=== PATIENT | female | born 1955 | race Caucasian/White ===

== ENCOUNTER 2017-07-01 14:43 | Inpatient (IN) | payer BC ==
[~2017-07-01] VITALS: Ht 160 cm; Wt 86.9 kg
[2017-07-01 14:45] VITALS: BP 139/89; PULSE 99; RESP 16; TEMP 98.2; O2SAT 96
[2017-07-01] MEDS ORDERED: SODIUM CHLOR 0.9% 1000 ML INJ 1,000 ML IV ONE ×3 (15:15→16:30)
[2017-07-01 15:18] VITALS: RESP 18; O2SAT 95
[2017-07-01 15:48] LABS: AUTOMATED NEUTROPHIL # 4.8 TH/MM3 (1.8-7.7); BASOPHIL % 0.6 % (0.0-2.0); EOSINOPHIL # 0.2 TH/MM3 (0-0.4); EOSINOPHIL % 2.4 % (0.0-4.0); HEMATOCRIT 48.6 % (35.0-46.0); HEMOGLOBIN 16.3 GM/DL (11.6-15.3); LYMPH % 24.7 % (9.0-44.0); LYMPHOCYTE # 1.8 TH/MM3 (1.0-4.8); MEAN CELL VOLUME 92.1 FL (80.0-100.0); MEAN CORPUSCULAR HGB CONC 33.6 % (32.0-36.0); MEAN PLATELET VOLUME 11.5 FL (7.0-11.0); MONO % 7.7 % (0.0-8.0); MONOCYTE # 0.6 TH/MM3 (0-0.9); NEUT % 64.6 % (16.0-70.0); PLATELET COUNT 208 TH/MM3 (150-450); RED BLOOD COUNT 5.27 MIL/MM3 (4.00-5.30); RED CELL DISTRIBUTION WIDTH 12.7 % (11.6-17.2); WHITE BLOOD COUNT 7.4 TH/MM3 (4.0-11.0)
[2017-07-01] MEDS ORDERED: HYDR12.56 PO (15:48)
[2017-07-01] MEDS ORDERED: PRAV40TA2 PO (15:48)
[2017-07-01 15:50] VITALS: BP 141/74; PULSE 75; RESP 18; O2SAT 96
--- NOTE | 2017-07-01 15:55 | PD ---
HPI Chief Complaint: Diabetic Time Seen by Provider: 14:57 Travel History International Travel<30 days: No Contact w/Intl Traveler<30days: No Traveled to known affect area: No History of Present Illness HPI 61-year-old female that presents to the ED for evaluation of dizziness, polyuria and polydipsia as well as elevated blood sugar. Per patient she's had this for about a week now. Per patient is Presently getting worse. looked up the symptoms she was having ongoing and that they could be diabetes of he personally told a blood sugar monitor for her and check her sugar multiple times and it read "high". She states that she has no history of diabetes was assessed history of high cholesterol and hypertension. Denies any chest pain or shortness of breath. Per patient she feels like she is dizzy and weak. She feels very thirsty. She has no pain. No numbness or tingling. Denies any trauma or head injury. Has a family history of diabetes in the family. She has an allergy to codeine and morphine. She has not taken anything for this. She's also been feeling nauseous but not throwing up. No diarrhea. PFSH Past Medical History Hypertension: Yes Triglycerides - High: Yes Past Surgical History Genitourinary Surgery: Yes (Rt kidney donated in 1996) Social History Alcohol Use: Yes (on occasion) Tobacco Use: No Substance Use: No Allergies-Medications (Allergen,Severity, Reaction): Coded Allergies: codeine (Verified Allergy, Severe, 07/01/17) morphine (Verified Allergy, Severe, 07/01/17) Reported Meds & Prescriptions Reported Meds & Active Scripts Active Reported Pravastatin 40 Mg Tab 40 Mg PO DAILY Hydrochlorothiazide 12.5 Mg Tab 12.5 Mg PO DAILY Review of Systems Except as stated in HPI: all other systems reviewed are Neg Physical Exam Narrative GENERAL: SKIN: Warm and dry. HEAD: Atraumatic. Normocephalic. EYES: Pupils equal and round. No scleral icterus. No injection or drainage. ENT: No nasal bleeding or discharge. Mucous membranes pink and moist. Tongue is midline. No uvula deviation. NECK: Trachea midline. No JVD. CARDIOVASCULAR: Regular rate and rhythm. No murmurs, S3, S4. RESPIRATORY: No accessory muscle use. Clear to auscultation. Breath sounds equal bilaterally. GASTROINTESTINAL: Abdomen soft, non-tender, nondistended. Hepatic and splenic margins not palpable. MUSCULOSKELETAL: Extremities without clubbing, cyanosis, or edema. No obvious deformities. Full range of motion of the upper and lower extremities bilaterally. 2+ pulses bilaterally. NEUROLOGICAL: Awake and alert. No obvious cranial nerve deficits. Motor grossly within normal limits. Five out of 5 muscle strength in the arms and legs. Normal speech. PSYCHIATRIC: Appropriate mood and affect; insight and judgment normal. Data Data Last Documented VS Vital Signs Date Time Temp Pulse Resp B/P (MAP) Pulse Ox O2 Delivery O2 Flow Rate FiO2 07/01/17 15:20 18 96 Room Air 07/01/17 15:18 07/01/17 14:45 98.2 99 Orders Orders Electrocardiogram (07/01/17 15:13) Complete Blood Count With Diff (07/01/17 15:13) Comprehensive Metabolic Panel (07/01/17 15:13) Ckmb (Isoenzyme) Profile (07/01/17 15:13) Troponin I (07/01/17 15:13) Urinalysis - C+S If Indicated (07/01/17 15:13) Magnesium (Mg) (07/01/17 15:13) Thyroid Stimulating Hormone (07/01/17 15:13) Ct Brain W/O Iv Contrast(Rout) (07/01/17 15:13) Iv Access Insert/Monitor (07/01/17 15:13) Ecg Monitoring (07/01/17 15:13) Oximetry (07/01/17 15:13) Sodium Chlor 0.9% 1000 Ml Inj (Ns 1000 M (07/01/17 15:15) Sodium Chlor 0.9% 1000 Ml Inj (Ns 1000 M (07/01/17 15:15) Beta Hydroxybutyrate (Acetone) (07/01/17 15:13) CKMB (07/01/17 15:26) CKMB% (07/01/17 15:26) Sodium Chlor 0.9% 1000 Ml Inj (Ns 1000 M (07/01/17 16:30) Admit To Inpatient (07/01/17 ) Vital Signs (Adult) Q4H (07/01/17 16:29) Activity Oob With Assistance (07/01/17 16:29) Electrical Equipment Technician / Telemetry .CONTINUOUS (07/01/17 16:29) Intake + Output KATHRIN.QSHIFT (07/01/17 16:29) Diet 1800 Ada Cons Carb (07/01/17 Dinner) Sodium Chlor 0.9% 1000 Ml Inj (Ns 1000 M (07/01/17 16:29) Sodium Chloride 0.9% Flush (Ns Flush) (07/01/17 16:30) Sodium Chloride 0.9% Flush (Ns Flush) (07/01/17 21:00) Basic Metabolic Panel (Bmp) (07/02/17 06:00) Complete Blood Count With Diff (07/02/17 06:00) Case Management Consult (07/01/17 16:29) Naloxone Inj (Narcan Inj) (07/01/17 16:30) Inpatient Certification (07/01/17 ) Bedside Glucose Q4H (07/01/17 16:29) Blood Glucose Goal (Criteria) (07/01/17 16:29) Hypoglycemia 70 Mg/Dl Or < (07/01/17 16:29) Notify Dr: Other (07/01/17 16:29) Dextrose 50% In Dari (Vial) Inj (D50w (Vi (07/01/17 16:30) Glucagon Inj (Glucagon Inj) (07/01/17 16:30) Insulin Aspart Supplemtl Scale (Novolog (07/01/17 16:30) Admit Order (Ed Use Only) (07/01/17 16:31) Labs Laboratory Tests Test 07/01/17 15:26 07/01/17 15:50 White Blood Count 7.4 TH/MM3 Red Blood Count 5.27 MIL/MM3 Hemoglobin 16.3 GM/DL Hematocrit 48.6 % Mean Corpuscular Volume 92.1 FL Mean Corpuscular Hemoglobin 31.0 PG Mean Corpuscular Hemoglobin Concent 33.6 % Red Cell Distribution Width 12.7 % Platelet Count 208 TH/MM3 Mean Platelet Volume 11.5 FL Neutrophils (%) (Auto) 64.6 % Lymphocytes (%) (Auto) 24.7 % Monocytes (%) (Auto) 7.7 % Eosinophils (%) (Auto) 2.4 % Basophils (%) (Auto) 0.6 % Neutrophils # (Auto) 4.8 TH/MM3 Lymphocytes # (Auto) 1.8 TH/MM3 Monocytes # (Auto) 0.6 TH/MM3 Eosinophils # (Auto) 0.2 TH/MM3 Basophils # (Auto) 0.0 TH/MM3 CBC Comment DIFF FINAL Differential Comment Blood Urea Nitrogen 38 MG/DL Creatinine 1.52 MG/DL Random Glucose 806 MG/DL Total Protein 8.3 GM/DL Albumin 4.0 GM/DL Calcium Level 9.6 MG/DL Magnesium Level 2.3 MG/DL Alkaline Phosphatase 131 U/L Aspartate Amino Transf (AST/SGOT) 50 U/L Alanine Aminotransferase (ALT/SGPT) 79 U/L Total Bilirubin 0.5 MG/DL Sodium Level 122 MEQ/L Potassium Level 5.1 MEQ/L Chloride Level 85 MEQ/L Carbon Dioxide Level 26.6 MEQ/L Anion Gap 10 MEQ/L Estimat Glomerular Filtration Rate 35 ML/MIN Total Creatine Kinase 134 U/L Creatine Kinase MB 0.5 NG/ML Troponin I LESS THAN 0.02 NG/ML Thyroid Stimulating Hormone 3rd Gen 0.863 uIU/ML B-Hydroxybutyrate 1.58 MMOL/L Urine Color LIGHT-YELLOW Urine Turbidity CLEAR Urine pH 5.0 Urine Specific [place] 1.026 Urine Protein NEG mg/dL Urine Glucose (UA) 1000 mg/dL Urine Ketones 10 mg/dL Urine Occult Blood NEG Urine Nitrite NEG Urine Bilirubin NEG Urine Urobilinogen LESS THAN 2.0 MG/DL Urine Leukocyte Esterase NEG Urine RBC LESS THAN 1 /hpf Urine WBC LESS THAN 1 /hpf Urine Mucus FEW /lpf Microscopic Urinalysis Comment CULT NOT INDICATED MDM Medical Decision Making Medical Screen Exam Complete: Yes Emergency Medical Condition: Yes Medical Record Reviewed: Yes Interpretation(s) CBC & BMP Diagram 07/01/17 15:26 Total Protein 8.3 H, Albumin 4.0, Calcium Level 9.6, Magnesium Level 2.3, Alkaline Phosphatase 131 H, Aspartate Amino Transf (AST/SGOT) 50 H, Alanine Aminotransferase (ALT/SGPT) 79 H, Total Bilirubin 0.5 beta hydroxy elevated troponin and CKMB negative EKG shows sinus rhythm with no sign of acute ischemia or arrhythmia rhythm and attending. CT of the head was negative for acute disease. Differential Diagnosis New-onset diabetes versus DKA versus dehydration versus CVA versus weakness versus dizziness Narrative Course 61-year-old female that presents to the ED for evaluation of dizziness and high blood sugars. Patient was properly examined and was found to have signs and symptoms very consistent with new-onset diabetes. Does not appear to be DKA at this time with definite concerning. Patient was started on IV fluids 2 L. Patient had lab work and imaging ordered to rule out any other sign of acute disease. Case was discussed in my attending Dr. Solorio who agrees with plan. Labs and imaging showed hyperglycemia, hyponatremia, acute kidney injury. Elevated LFTs as well. Otherwise unremarkable. This time recommendations for admission. Patient was given 3 L here IV. Patient will be admitted for new onset diabetes. Case was discussed with Dr. Delgado who agrees to admission for her service. Diagnosis Primary Impression: Diabetes Qualified Codes: E11.8 - Type 2 diabetes mellitus with unspecified complications Additional Impressions: Hyponatremia Acute kidney injury Admitting Information Admitting Physician Requests: Admit Mustapha Parra Jul 01, 2017 15:55
[2017-07-01 16:07] LABS: AST (GOT) 50 U/L (15-37); BICARBONATE 26.6 MEQ/L (21.0-32.0); BLOOD UREA NITROGEN 38 MG/DL (7-18); CALCIUM 9.6 MG/DL (8.5-10.1); CHLORIDE 85 MEQ/L (98-107); CREATININE 1.52 MG/DL (0.50-1.00); GLOMERULAR FILTRATION RATE 35 ML/MIN (>89); MAGNESIUM 2.3 MG/DL (1.5-2.5)
[2017-07-01 16:16] LABS: ALKALINE PHOSPHATASE 131 U/L (45-117); ALT (GPT) 79 U/L (10-53); TOTAL BILIRUBIN ADULT 0.5 MG/DL (0.2-1.0); TOTAL PROTEIN 8.3 GM/DL (6.4-8.2); TROPONIN I LESS THAN 0.02 NG/ML (0.02-0.05)
[2017-07-01 16:18] LABS: GLUCOSE,RANDOM 806 MG/DL (74-106); SODIUM (NA) 122 MEQ/L (136-145)
[2017-07-01 16:21] LABS: BILIRUBIN, URINE NEG (NEG); BLOOD, URINE NEG (NEG); GLUCOSE,URINE 1000 mg/dL (NEG); KETONE, URINE 10 mg/dL (NEG); MUCUS URINE FEW /lpf (OCC); NITRITE,URINE NEG (NEG); URINE COLOR LIGHT-YELLOW (YELLW/STRAW); URINE LEUKOCYTE ESTERASE NEG (NEG)
[2017-07-01] MEDS ORDERED: NALOXONE HCL 0.4 MG/ML AMP IV PUSH PRN (16:30)
[2017-07-01] MEDS ORDERED: GLUCAGON 1 MG/ML VIAL OTHER PRN (16:30)
[2017-07-01] MEDS ORDERED: SODIUM CHLORIDE 0.9% FLUSH 10 ML FLUSH IV FLUSH PRN (16:30)
[2017-07-01] MEDS ORDERED: DEXTROSE 50% IN WATER 50 ML VIAL(D50) IV PUSH PRN (16:30)
--- NOTE | 2017-07-01 16:39 | PD ---
Physical Exam Narrative GENERAL: Well-nourished, well-developed patient. SKIN: Warm and dry. HEAD: Normocephalic and atraumatic. EYES: No injection or drainage. ENT: No nasal drainage noted. NECK: Supple, trachea midline. CARDIOVASCULAR: Regular rate and rhythm RESPIRATORY: no increased effort. No accessory muscle use. NEUROLOGICAL: Awake and alert. Motor and sensory grossly within normal limits. Normal speech. Data Data Last Documented VS Vital Signs Date Time Temp Pulse Resp B/P (MAP) Pulse Ox O2 Delivery O2 Flow Rate FiO2 07/01/17 15:20 18 96 Room Air 07/01/17 15:18 07/01/17 14:45 98.2 99 Orders Orders Electrocardiogram (07/01/17 15:13) Complete Blood Count With Diff (07/01/17 15:13) Comprehensive Metabolic Panel (07/01/17 15:13) Ckmb (Isoenzyme) Profile (07/01/17 15:13) Troponin I (07/01/17 15:13) Urinalysis - C+S If Indicated (07/01/17 15:13) Magnesium (Mg) (07/01/17 15:13) Thyroid Stimulating Hormone (07/01/17 15:13) Ct Brain W/O Iv Contrast(Rout) (07/01/17 15:13) Iv Access Insert/Monitor (07/01/17 15:13) Ecg Monitoring (07/01/17 15:13) Oximetry (07/01/17 15:13) Sodium Chlor 0.9% 1000 Ml Inj (Ns 1000 M (07/01/17 15:15) Sodium Chlor 0.9% 1000 Ml Inj (Ns 1000 M (07/01/17 15:15) Beta Hydroxybutyrate (Acetone) (07/01/17 15:13) CKMB (07/01/17 15:26) CKMB% (07/01/17 15:26) Labs Laboratory Tests Test 07/01/17 15:26 07/01/17 15:50 White Blood Count 7.4 TH/MM3 Red Blood Count 5.27 MIL/MM3 Hemoglobin 16.3 GM/DL Hematocrit 48.6 % Mean Corpuscular Volume 92.1 FL Mean Corpuscular Hemoglobin 31.0 PG Mean Corpuscular Hemoglobin Concent 33.6 % Red Cell Distribution Width 12.7 % Platelet Count 208 TH/MM3 Mean Platelet Volume 11.5 FL Neutrophils (%) (Auto) 64.6 % Lymphocytes (%) (Auto) 24.7 % Monocytes (%) (Auto) 7.7 % Eosinophils (%) (Auto) 2.4 % Basophils (%) (Auto) 0.6 % Neutrophils # (Auto) 4.8 TH/MM3 Lymphocytes # (Auto) 1.8 TH/MM3 Monocytes # (Auto) 0.6 TH/MM3 Eosinophils # (Auto) 0.2 TH/MM3 Basophils # (Auto) 0.0 TH/MM3 CBC Comment DIFF FINAL Differential Comment Blood Urea Nitrogen 38 MG/DL Creatinine 1.52 MG/DL Random Glucose 806 MG/DL Total Protein 8.3 GM/DL Albumin 4.0 GM/DL Calcium Level 9.6 MG/DL Magnesium Level 2.3 MG/DL Alkaline Phosphatase 131 U/L Aspartate Amino Transf (AST/SGOT) 50 U/L Alanine Aminotransferase (ALT/SGPT) 79 U/L Total Bilirubin 0.5 MG/DL Sodium Level 122 MEQ/L Potassium Level 5.1 MEQ/L Chloride Level 85 MEQ/L Carbon Dioxide Level 26.6 MEQ/L Anion Gap 10 MEQ/L Estimat Glomerular Filtration Rate 35 ML/MIN Total Creatine Kinase 134 U/L Troponin I LESS THAN 0.02 NG/ML Thyroid Stimulating Hormone 3rd Gen 0.863 uIU/ML B-Hydroxybutyrate 1.58 MMOL/L MDM Supervised Visit with TEETEE: Yes Interpretation(s) CBC & BMP Diagram 07/01/17 15:26 Total Protein 8.3 H, Albumin 4.0, Calcium Level 9.6, Magnesium Level 2.3, Alkaline Phosphatase 131 H, Aspartate Amino Transf (AST/SGOT) 50 H, Alanine Aminotransferase (ALT/SGPT) 79 H, Total Bilirubin 0.5 Narrative Course I, Dr. bell, have reviewed the advance practice practitioner's documentation and am in agreement, met with the patient face to face, made the diagnosis, and the medical decision making was done by me. *My assessment and Findings: 61 y/o female states that she follows with Dr. riggins and had a high hemoglobin A1c but they were not starting medication because it wasn't high enough. She has not been diagnosed with diabetes yet. She felt like she been having symptoms of a high sugar which she elected up and so she checked her sugar and what it was high she elected to come here. Workup confirms critical glucose but she is not in DKA. Will admit for further care. Diagnosis Primary Impression: Hyperglycemia Adele Bell MD Jul 01, 2017 16:39
[2017-07-01] MEDS: SODIUM CHLOR 0.9% 1000 ML INJ 1,000 ML IV SCH (17:00)
--- NOTE | 2017-07-01 17:07 | RADRPT ---
EXAM DATE/TIME: 07/01/2017 16:34 [facility] COMPARISON: No previous studies available for comparison. INDICATIONS : Dizziness, high blood sugar and blood pressure. RADIATION DOSE: 30.13 CTDIvol (mGy) MEDICAL HISTORY : Hypertension. SURGICAL HISTORY : Donated right kidney ENCOUNTER: Initial ACUITY: 1 day PAIN SCALE: 0/10 LOCATION: cranial TECHNIQUE: Multiple contiguous axial images were obtained of the head. Using automated exposure control and adj ustment of the mA and/or kV according to patient size, radiation dose was kept as low as reasonably a chievable to obtain optimal diagnostic quality images. DICOM format image data is available electro nically for review and comparison. FINDINGS: There is no evidence for intracranial hemorrhage, mass effect, mass lesions, edema, or extra-axial fl uid collections. The visualized bony structures appear intact. The ventricles are normal size for t he patient's age. There are no signs of acute infarction for technique. CONCLUSION: Unremarkable study. Matthew Kim MD on July 01, 2017 at 17:04 Board Certified Radiologist. This report was verified electronically.
[2017-07-01] MEDS: INSULIN ASPART SUPPLEMENTAL SCALE SQ SCH ×2 (17:12→21:13)
[2017-07-01] MEDS ORDERED: INSULIN HUMAN REGULAR 1,000 UNITS/10 ML VIAL IV PUSH ONE (18:00)
--- NOTE | 2017-07-01 18:04 | HHI.HP ---
[facility] Memo Meeks MD Admission Diagnosis new onset diabetic, hyponatremia, acute kidney injury Diagnoses: Travel History International Travel<30 Days: No Contact w/Intl Traveler <30 Da: No Traveled to Known Affected Are: No History of Present Illness History from patient, ER recommendation, and nursing staff. vision completely blurr dizziness almost passing out thirsty all the time, dry mouth polyuria, every hour on the hour at night no energy, laying on couch all symptoms gradually - but worsening past one week and since [place] no fever no infection no diarrhea, no urine symptoms no vomiting no sinus symptoms, no ear discharge no fever Review of Systems Except as stated in HPI: all other systems reviewed are Neg Past Family Social History Past Medical History htn hyperglycemia on routine blood work as outpatient- and doctor was going to check A1C in aug lft abnormality per pcp in outpt apt in jun 2017 renal function abnormality per pcp in outpatient apt in jun 2017- baseline Cr was 1.1 per pt s/p right nephrectomy- because she donated to son in 1996 when he was 9 yrs old Past Surgical History 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 even before her first child Allergies: Coded Allergies: codeine (Verified Allergy, Severe, 07/01/17) morphine (Verified Allergy, Severe, 07/01/17) lisinopril (Verified Adverse Reaction, Intermediate, cough, 07/01/17) Family History dad- dm mom- breast cancer Social History quit smoking about 2011 havent drank for at least 3 weeks, usually drinks about once or twice a weekend no drugs Physical Exam Vital Signs Vital Signs Date Time Temp Pulse Resp B/P (MAP) Pulse Ox O2 Delivery O2 Flow Rate FiO2 07/01/17 15:50 75 18 141/74 (96) 96 Room Air 07/01/17 15:20 18 96 Room Air 07/01/17 15:18 18 95 Room Air 07/01/17 14:45 98.2 99 16 139/89 (106) 96 Room Air Physical Exam GENERAL: This is a well-nourished, well-developed patient, in no apparent distress. SKIN: No rashes, ecchymoses or lesions. Cool and dry. HEAD: Atraumatic. Normocephalic. No temporal or scalp tenderness. EYES: Pupils equal round and reactive. Extraocular motions intact. No scleral icterus. No injection or drainage. ENT: Nose without bleeding, purulent drainage or septal hematoma. Airway patent. NECK: Trachea midline. No JVD or lymphadenopathy. Supple, nontender, no meningeal signs. CARDIOVASCULAR: Regular rate and rhythm without murmurs, gallops, or rubs. RESPIRATORY: Clear to auscultation. Breath sounds equal bilaterally. No wheezes , rales, or rhonchi. GASTROINTESTINAL: Abdomen soft, non-tender, nondistended. No guarding. MUSCULOSKELETAL: Extremities without clubbing, cyanosis, or edema.. No calf tenderness. NEUROLOGICAL: Awake and alert. Motor and sensory grossly within normal limits. s. Normal speech. Laboratory Laboratory Tests Test 07/01/17 15:26 07/01/17 15:50 White Blood Count 7.4 Red Blood Count 5.27 Hemoglobin 16.3 Hematocrit 48.6 Mean Corpuscular Volume 92.1 Mean Corpuscular Hemoglobin 31.0 Mean Corpuscular Hemoglobin Concent 33.6 Red Cell Distribution Width 12.7 Platelet Count 208 Mean Platelet Volume 11.5 Neutrophils (%) (Auto) 64.6 Lymphocytes (%) (Auto) 24.7 Monocytes (%) (Auto) 7.7 Eosinophils (%) (Auto) 2.4 Basophils (%) (Auto) 0.6 Neutrophils # (Auto) 4.8 Lymphocytes # (Auto) 1.8 Monocytes # (Auto) 0.6 Eosinophils # (Auto) 0.2 Basophils # (Auto) 0.0 CBC Comment DIFF FINAL Differential Comment Blood Urea Nitrogen 38 Creatinine 1.52 Random Glucose 806 Total Protein 8.3 Albumin 4.0 Calcium Level 9.6 Magnesium Level 2.3 Alkaline Phosphatase 131 Aspartate Amino Transf (AST/SGOT) 50 Alanine Aminotransferase (ALT/SGPT) 79 Total Bilirubin 0.5 Sodium Level 122 Potassium Level 5.1 Chloride Level 85 Carbon Dioxide Level 26.6 Anion Gap 10 Estimat Glomerular Filtration Rate 35 Total Creatine Kinase 134 Creatine Kinase MB 0.5 Troponin I LESS THAN 0.02 Thyroid Stimulating Hormone 3rd Gen 0.863 B-Hydroxybutyrate 1.58 Urine Color LIGHT-YELLOW Urine Turbidity CLEAR Urine pH 5.0 Urine Specific [place] 1.026 Urine Protein NEG Urine Glucose (UA) 1000 Urine Ketones 10 Urine Occult Blood NEG Urine Nitrite NEG Urine Bilirubin NEG Urine Urobilinogen LESS THAN 2.0 Urine Leukocyte Esterase NEG Urine RBC LESS THAN 1 Urine WBC LESS THAN 1 Urine Mucus FEW Microscopic Urinalysis Comment CULT NOT INDICATED Result Diagram: 07/01/17 1526 07/01/17 1526 Imaging Last [address] 07/01/17 1513 Signed Impressions: Service Date/Time: Saturday, July 01, 2017 16:34 - CONCLUSION: Unremarkable study. Matthew Kim MD Capbridget VTE Risk Assessment Caprini VTE Risk Assessment: Mod/High Risk (score >= 2) Caprini Risk Assessment Model Point Value = 1 Point Value = 2 Point Value = 3 Point Value = 5 Age 41-60 Minor surgery BMI > 25 kg/m2 Swollen legs Varicose veins or History of unexplained or recurrent spontaneous Oral contraceptives or hormone replacement Sepsis (< 1 month) Serious lung disease, including pneumonia (< 1 month) Abnormal pulmonary function Acute myocardial infarction Congestive heart failure (< 1 month) History of inflammatory bowel disease Medical patient at bed rest Age 61-74 Arthroscopic surgery Major open surgery (> 45 min) Laparoscopic surgery (> 45 min) Malignancy Confined to bed (> 72 hours) Immobilizing plaster cast Central venous access Age >= 75 History of VTE Family history of VTE Factor V Leiden Prothrombin [id number] Lupus anticoagulant Anticardiolipin antibodies Elevated serum homocysteine Heparin-induced thrombocytopenia Other congenital or acquired thrombophilia Stroke (< 1 month) Elective arthroplasty Hip, pelvis, or leg fracture Acute spinal cord injury (< 1 month) Prophylaxis Regimen Total Risk Factor Score Risk Level Prophylaxis Regimen 0-1 Low Early ambulation 2 Moderate Order ONE of the following: *Sequential Compression Device (SCD) *Heparin 5000 units SQ BID 3-4 Higher Order ONE of the following medications: *Heparin 5000 units SQ TID *Enoxaparin/Lovenox 40 mg SQ daily (WT < 150 kg, CrCl > 30 mL/min) *Enoxaparin/Lovenox 30 mg SQ daily (WT < 150 kg, CrCl > 10-29 mL/min) *Enoxaparin/Lovenox 30 mg SQ BID (WT < 150 kg, CrCl > 30 mL/min) AND/OR *Sequential Compression Device (SCD) 5 or more Highest Order ONE of the following medications: *Heparin 5000 units SQ TID (Preferred with Epidurals) *Enoxaparin/Lovenox 40 mg SQ daily (WT < 150 kg, CrCl > 30 mL/min) *Enoxaparin/Lovenox 30 mg SQ daily (WT < 150 kg, CrCl > 10-29 mL/min) *Enoxaparin/Lovenox 30 mg SQ BID (WT < 150 kg, CrCl > 30 mL/min) AND *Sequential Compression Device (SCD) Assessment and Plan Assessment and Plan Impression: Pseudohypernatremia hyperglycemia- not in dka lft abnormality lisinopril induced cough- had PFT studies as outpatient hctz started about 3 months ago with losartan Comorbid conditions: htn hyperglycemia on routine blood work as outpatient- and doctor was going to check A1C in aug lft abnormality per pcp in outpt apt in jun 2017 renal function abnormality per pcp in outpatient apt in jun 2017- baseline Cr was 1.1 per pt s/p right nephrectomy- because she donated to son in 1996 when he was 11 yrs old Plan: dc hctz ct losartan for renal protection in diabetic if BP remains high, start norvasc BMP to follow Na to follow- partly from hyperglycemia hepatitis profile HbA1c To please check with patient's again in a.m. regarding her losartan dose. The nurse did not record it on EMR but believes that it was losartan 100 mg/hydrochlorothiazide 12.5 mg. DVT prophylaxis with heparin. Discussed Condition With patient, ER PA, nursing staff Physician Certification 2 Midnight Certification Type: Admission for Inpatient Services Order for Inpatient Services The services are ordered in accordance with Medicare regulations or non- Medicare payer requirements, as applicable. In the case of services not specified as inpatient-only, they are appropriately provided as inpatient services in accordance with the 2-midnight benchmark. Estimated LOS (days): 2 days is the estimated time the patient will need to remain in the hospital, assuming treatment plan goals are met and no additional complications. Post-Hospital Plan: Home Adeola Delgado MD Jul 01, 2017 18:04
[2017-07-01 18:23] VITALS: BP 153/72; PULSE 79; RESP 18; O2SAT 98
--- NOTE | 2017-07-01 19:32 | EKG ---
Date Performed: 07/01/2017 Time Performed: 15:17:30 PTAGE: 61 years EKG: Sinus rhythm POSSIBLE RIGHT VENTRICULAR CONDUCTION DELAY BORDERLINE ECG NO PREVIOUS TRACING DOCTOR: Carmelo Garcia Interpretating Date/Time 07/01/2017 19:31:10
[2017-07-01 20:31] VITALS: BP 129/84; PULSE 70; RESP 18; TEMP 96.5; O2SAT 95
[2017-07-01] MEDS: SODIUM CHLORIDE 0.9% FLUSH 10 ML FLUSH IV FLUSH SCH (21:14)
[2017-07-01] MEDS: HEPARIN SODIUM - SQ 10,000 UNITS/ML VIAL SQ SCH (21:17)
[2017-07-01 23:34] LABS: BICARBONATE 27.4 MEQ/L (21.0-32.0); CALCIUM 8.1 MG/DL (8.5-10.1); CREATININE 1.17 MG/DL (0.50-1.00)
[2017-07-02] VITALS (7 sets, daily range): BP systolic 105–150; BP diastolic 54–80; PULSE 67–79; RESP 18–19; TEMP 96.9–97.9; O2SAT 95–96
[2017-07-02] MEDS: INSULIN ASPART SUPPLEMENTAL SCALE SQ SCH ×6 (01:05→21:02)
[2017-07-02] MEDS: SODIUM CHLOR 0.9% 1000 ML INJ 1,000 ML IV SCH ×3 (01:12→21:02)
[2017-07-02] MEDS: HEPARIN SODIUM - SQ 10,000 UNITS/ML VIAL SQ SCH ×3 (06:23→20:51)
[2017-07-02] MEDS: LOSARTAN 25 MG TAB PO SCH (08:30)
[2017-07-02] MEDS: SODIUM CHLORIDE 0.9% FLUSH 10 ML FLUSH IV FLUSH SCH ×2 (08:30→20:48)
--- NOTE | 2017-07-02 09:26 | HHI.PR ---
Subjective Remarks Patient seen and examined this am. Reports still some blurry vision with seeing distance but feels significantly better. Tolerating diet. Denies CP or difficulty breathing. Objective Vital Signs Date Time Temp Pulse Resp B/P (MAP) Pulse Ox O2 Delivery O2 Flow Rate FiO2 07/02/17 04:18 96.9 68 18 114/66 (82) 96 07/02/17 00:13 97.7 78 18 105/54 (71) 95 07/01/17 20:31 96.5 70 18 129/84 (99) 95 07/01/17 18:23 79 18 153/72 (99) 98 Room Air 07/01/17 15:50 75 18 141/74 (96) 96 Room Air 07/01/17 15:20 18 96 Room Air 07/01/17 15:18 18 95 Room Air 07/01/17 14:45 98.2 99 16 139/89 (106) 96 Room Air I/O 07/01/17 07/01/17 07/01/17 07/02/17 07/02/17 07/02/17 07:00 15:00 23:00 07:00 15:00 23:00 Intake Total 480 ml 480 ml Balance 480 ml 480 ml Intake Oral 480 ml 480 ml # Voids 4 # Bowel Movements 1 Result Diagram: 07/01/17 1526 07/01/17 2249 Imaging Last Impressions Head CT 07/01/17 1513 Signed Impressions: Service Date/Time: Saturday, July 01, 2017 16:34 - CONCLUSION: Unremarkable study. KGrant Kim MD Objective Remarks GENERAL: well appearing nad SKIN: Warm and dry. HEAD: Normocephalic. EYES: No scleral icterus. No injection or drainage. NECK: Supple, trachea midline. No JVD or lymphadenopathy. CARDIOVASCULAR: Regular rate and rhythm without murmurs, gallops, or rubs. RESPIRATORY: Breath sounds equal bilaterally. No accessory muscle use. GASTROINTESTINAL: Abdomen soft, non-tender, nondistended. MUSCULOSKELETAL: No cyanosis, or edema. No calf tenderness. A/P Problem List: (1) Diabetes ICD Code: E11.9 - Type 2 diabetes mellitus without complications Status: Acute (2) Hyponatremia ICD Code: E87.1 - Hypo-osmolality and hyponatremia Status: Acute (3) Hyperglycemia ICD Code: R73.9 - Hyperglycemia, unspecified Status: Acute (4) Acute kidney injury ICD Code: N17.9 - Acute kidney failure, unspecified Status: Acute Assessment and Plan In summary this is a 61-year-old female patient who presents to ED for evaluation of dizziness, polyuria, polydipsia, in addition to an elevated blood sugar. Recently having a diabetes workup as an outpatient. Labs in the ED was significant for sodium of 122, random glucose of 806, and a creatinine of 1.5. Hyperglycemia - Not in DKA - She is status post IV fluid bolus 2, 10 units of regular insulin, was started on supplemental scale - Bedside glucoses have ranged from 160-489 - Her A1c is 8.1 - The patient has renal insufficiency in addition to elevated LFTs (unclear baseline) - visual changes normal, even as we begin to control her blood glusose. - Plan: diabetes education ordered, will start her on some basal insulin, 5 units hs levemir and continue supplemental scale. It is possible that the patient's diabetes could be controlled on oral agents but given her renal insufficiency and elevated LFTs, will hold and this can be considered as an outpatient. Pseudohyponatremia - improved with IVF Hypertension - Continue home losartan, cannot tolerate and ACEI - BP stable HOMERO - 1.5 on admission - improved with IVF - patient reports baseline is 1.1 Fluids: NS @ 100 cc/hr Electrolytes:K 3.2, replace Nutrition: diabetic diet Discharge Planning D/C tomorrow if no further issues. Explained to patient she can likely be transitioned to orals as an outpatient, for now will be on basal insulin with sliding scale. She is in agreement with this plan. Problem Qualifiers (1) Diabetes: Qualified Codes: E11.8 - Type 2 diabetes mellitus with unspecified complications Salome Sharma MD Jul 02, 2017 09:26
[2017-07-02] MEDS ORDERED: POTASSIUM CHLORIDE 10 MEQ CONTROLLED RELEASE TAB PO ONE (09:30)
[2017-07-02 10:09] LABS: AUTOMATED NEUTROPHIL # 2.9 TH/MM3 (1.8-7.7); BASOPHIL % 0.5 % (0.0-2.0); EOSINOPHIL # 0.2 TH/MM3 (0-0.4); EOSINOPHIL % 3.3 % (0.0-4.0); HEMATOCRIT 42.2 % (35.0-46.0); HEMOGLOBIN 14.3 GM/DL (11.6-15.3); LYMPH % 37.8 % (9.0-44.0); LYMPHOCYTE # 2.1 TH/MM3 (1.0-4.8); MEAN CORPUSCULAR HEMOGLOBIN 30.6 PG (27.0-34.0); MEAN PLATELET VOLUME 10.1 FL (7.0-11.0); MONO % 6.7 % (0.0-8.0); MONOCYTE # 0.4 TH/MM3 (0-0.9); NEUT % 51.7 % (16.0-70.0); PLATELET COUNT 150 TH/MM3 (150-450); RED BLOOD COUNT 4.69 MIL/MM3 (4.00-5.30); RED CELL DISTRIBUTION WIDTH 12.6 % (11.6-17.2); WHITE BLOOD COUNT 5.7 TH/MM3 (4.0-11.0)
[2017-07-02 10:38] LABS: CREATININE 0.9 MG/DL (0.50-1.00)
[2017-07-02] MEDS ORDERED: INSULIN DETEMIR 100 UNITS/ML VIAL SQ SCH (21:00)
[2017-07-03] VITALS: BP 124/84; PULSE 74; RESP 18; TEMP 97.7; O2SAT 96
[2017-07-03 00:16] VITALS: PULSE 69
[2017-07-03] MEDS: INSULIN ASPART SUPPLEMENTAL SCALE SQ SCH ×4 (00:30→12:30)
[2017-07-03 04:00] VITALS: BP 121/69; PULSE 72; RESP 18; TEMP 97; O2SAT 96
[2017-07-03 04:16] VITALS: PULSE 69
[2017-07-03] MEDS: HEPARIN SODIUM - SQ 10,000 UNITS/ML VIAL SQ SCH (05:19)
[2017-07-03] MEDS: SODIUM CHLOR 0.9% 1000 ML INJ 1,000 ML IV SCH (05:27)
[2017-07-03 08:00] VITALS: BP 121/82; PULSE 73; RESP 17; TEMP 97.7; O2SAT 96
[2017-07-03 08:02] LABS: BICARBONATE 26.8 MEQ/L (21.0-32.0); CALCIUM 7.4 MG/DL (8.5-10.1); CREATININE 0.81 MG/DL (0.50-1.00); MAGNESIUM 1.9 MG/DL (1.5-2.5)
[2017-07-03] MEDS: LOSARTAN 25 MG TAB PO SCH (08:16)
[2017-07-03 08:31] LABS: CALCIUM-PROTEIN CORRECTED 8.2 MG/DL (8.5-10.1); TOTAL PROTEIN 5.6 GM/DL (6.4-8.2)
[2017-07-03] MEDS: SODIUM CHLORIDE 0.9% FLUSH 10 ML FLUSH IV FLUSH SCH (09:00)
[2017-07-03 11:58] LABS: HEPATITIS A AB IGM NEGATIVE (NEGATIVE); HEPATITIS B CORE AB IGM NEGATIVE (NEGATIVE); HEPATITIS B SURFACE ANTIGEN NEGATIVE (NEGATIVE); HEPATITIS C AB IgG NEGATIVE (NEGATIVE)
[2017-07-03 12:00] VITALS: BP 129/89; PULSE 73; RESP 17; TEMP 96.8; O2SAT 95
[2017-07-03] MEDS ORDERED: METF850T PO (12:00)
[2017-07-03] MEDS ORDERED: COZA25TA PO (12:00)
[2017-07-03] MEDS ORDERED: NOVOLOGSS SQ (12:00)
[2017-07-03] MEDS ORDERED: MAGN400T2 PO (12:01)
[2017-07-03] MEDS ORDERED: POTASSIUM CHLORIDE 20 MEQ CONTROLLED RELEASE TAB PO ONE (12:15)
[2017-07-03] MEDS ORDERED: BLOOD GLUCOSE T1 TES (12:44)
[2017-07-03] MEDS ORDERED: LANCETS1 MI1 (12:44)
[2017-07-03 16:09] LABS: HEMOGLOBIN A1C 12.2 % (4.3-6.0)
--- NOTE | 2017-07-03 17:03 | HHI.PR ---
Objective Vitals Vital Signs Date Time Temp Pulse Resp B/P (MAP) Pulse Ox O2 Delivery O2 Flow Rate FiO2 07/03/17 12:00 96.8 73 17 129/89 (102) 95 07/03/17 08:00 97.7 73 17 121/82 (95) 96 07/03/17 08:00 73 07/03/17 04:16 69 07/03/17 04:00 97.0 72 18 121/69 (86) 96 07/03/17 00:16 69 07/03/17 00:00 97.7 74 18 124/84 (97) 96 07/02/17 20:06 78 07/02/17 20:00 97.9 79 18 129/80 (96) 96 I/O 07/02/17 07/02/17 07/02/17 07/03/17 07/03/17 07/03/17 07:00 15:00 23:00 07:00 15:00 23:00 Intake Total 480 ml 120 ml 2000 ml 1575 ml Output Total 900 ml Balance 480 ml 120 ml 1100 ml 1575 ml Intake Oral 480 ml 120 ml 1000 ml 720 ml IV Total 1000 ml 855 ml Output Urine Total 900 ml # Voids 4 1 # Bowel Movements 1 1 0 Result Diagram: 07/02/17 0904 07/03/17 0635 Pastor Connell MD Jul 03, 2017 17:03
[2017-07-03] MEDS ORDERED: NOVORP2 IV PUSH (18:03)
[2017-07-03] MEDS ORDERED: INSULIN NovoLIN REGULAR SUPPLEMENTAL SCALE SQ SCH (21:00)
== END 2017-07-03 14:20 | disposition home or self-care (01) | DRG 638 ==
LOC: NEPC 14:43 → NEDA 16:32 → N07B 18:45
PROVIDERS: ADMIT Hospitalist; ATTEND Hospitalist
DX: E11.65 Type 2 diabetes mellitus with hyperglycemia (principal); N17.9 Acute kidney failure, unspecified; E87.1 Hypo-osmolality and hyponatremia; I10 Essential (primary) hypertension; Z90.5 Acquired absence of kidney; R05 Cough; T46.4X5A Adverse effect of angiotensin-converting-enzyme inhibitors, initial encounter; Z83.3 Family history of diabetes mellitus; Z88.5 Allergy status to narcotic agent; Z87.891 Personal history of nicotine dependence
CPT/HCPCS: 70450; 80048; 80053; 80074; 81001; 82010; 82550; 82552; 82948; 83036; 83735; 84155; 84443; 84484; 85025; 93005; 96360; J1644; J1815; J7030